=== PATIENT | male | born 1985 | race Caucasian/White ===

== ENCOUNTER 2024-08-19 19:30 | Emergency (ER) | payer OTHER ==
[2024-08-19 20:01] VITALS: BP 118/70; PULSE 54; RESP 16; TEMP 98; BMI 22.3
[2024-08-19] MEDS: ACETAMINOPHEN 500 MG TABLET (FP) PO ONE (20:46)
[2024-08-19] MEDS ORDERED: ACETAMINOPHEN 325 MG TABLET (FP) ONE (20:47)
[2024-08-19 20:58] LABS: BASOPHILS # 0.03 x10^3/uL (0.01-0.08); EOSINOPHIL % 1.8 % (0.8-7.0); EOSINOPHILS # 0.09 x10^3/uL (0.04-0.54); HEMOGLOBIN 14.4 g/dL (13.7-17.5); MCHC 32.7 g/dl (32.3-36.5); MEAN CELL VOLUME 95.2 fl (79.0-92.2); MEAN PLT VOLUME 8.6 fl (9.4-12.4); MONOCYTE # 0.31 x10^3/uL (0.30-0.82); MONOCYTE % 6.2 % (5.3-12.2); PLATELET COUNT 230 x10^3/uL (163-337); RDW 12.4 % (12.1-15.9)
[2024-08-19 21:17] LABS: CALCIUM 8.9 mg/dL (8.5-10.1)
[2024-08-19 21:18] LABS: ALBUMIN 3.7 g/dl (3.4-5.0); BLOOD UREA NITROGEN 9.6 mg/dL (7-18)
[2024-08-19 21:21] LABS: CREATININE 0.7 mg/dL (0.55-1.3)
[2024-08-19 21:23] LABS: BILIRUBIN,TOTAL 0.4 mg/dL (0.2-1); TOT PROT 7.2 g/dl (6.4-8.2)
== END 2024-08-19 21:38 | disposition home or self-care (01) ==
LOC: JER 19:30
DX: R07.89 Other chest pain (principal); R00.1 Bradycardia, unspecified
CPT/HCPCS: 36415; 71046-TC-FY; 80053; 84484; 85025; 93005; 93010; 99285-25